=== PATIENT | male | born 1990 | race African-American/Black ===

== ENCOUNTER 2016-11-01 14:32 | Inpatient (IN) | payer BC, OTHER ==
[2016-11-01 15:57] VITALS: BMI 22.8
--- NOTE | 2016-11-01 18:29 | HP ---
COWS - Scale Resting Pulse: 0= [place] 80 or Below Sweatin= Chills/Flushing Restless Observation: 1= Difficult to Sit Still Pupil Size: 1= Pupils >than Normal Bone or Joint Aches: 1= Mild Discomfort Runny Nose/ Eye Tearin= Nasal Congestion GI Upset > 30mins: 3= Vomiting/Diarrhea Tremor Observation: 2= Slight Tremor Visible Yawning Observation: 0= None Anxiety or Irritability: 2=Irritable/Anxious Goose Flesh Skin: 3=Piloerection COWS Score: 15 Admission ROS S - [facility] Chief Complaint: WITHDRAWAL SX Allergies/Adverse Reactions: Allergies Allergy/AdvReac Type Severity Reaction Status Date / Time No Known Allergies Allergy Verified 11/01/16 17:08 History of Present Illness: 25 YEARS OLD MALE WITH LONG HISTORY OF OPIATE NICOTINE DEPENDENCE HAS SCOLIOSIS DENIES MENTAL ILLNESS IS ADMITTED TO DETOX Exam Limitations: No Limitations - Ebola screening Have you traveled outside of the country in the last 21 days: No (N) Have you had contact with anyone from an Ebola affected area: No Have you been sick,other than usual withdrawal symptoms: No Do you have a fever: No - Review of Systems Constitutional: Chills, Loss of Appetite, Changes in sleep, Unintentional Wgt. Loss, Unexplained wgt Loss EENT: reports: No Symptoms Reported Respiratory: reports: No Symptoms reported Cardiac: reports: No Symptoms Reported GI: reports: Diarrhea, Nausea, Poor Appetite, Poor Fluid Intake, Vomiting, Abdominal cramping : reports: No Symptoms Reported Musculoskeletal: reports: Back Pain, Joint Pain, Muscle Pain, Neck Pain Integumentary: reports: No Symptoms Reported Neuro: reports: Tremors Endocrine: reports: No Symptoms Reported Hematology: reports: No Symptoms Reported Psychiatric: reports: Judgement Intact, Mood/Affect Appropiate, Orientated x3 Other Systems: Reviewed and Negative Patient History - Patient Medical History Hx Anemia: No Hx Asthma: No Hx Chronic Obstructive Pulmonary Disease (COPD): No Hx Cancer: No Hx Cardiac Disorders: No Hx Congestive Heart Failure: No Hx Hypertension: No Hx Hypercholesterolemia: No Hx Pacemaker: No HX Cerebrovascular Accident: No Hx Seizures: No Hx Dementia: No Hx Diabetes: No Hx Gastrointestinal Disorders: No Hx Liver Disease: No Hx Genitourinary Disorders: No Hx Sexually Transmitted Disorders: No Hx Renal Disease (ESRD): No Hx Thyroid Disease: No Hx Human Immunodeficiency Virus (HIV): No Hx Hepatitis C: No Hx Depression: No Hx Suicide Attempt: No Hx Bipolar Disorder: No Hx Schizophrenia: No - Patient Surgical History Past Surgical History: No - PPD History Previous Implant?: Yes Documented Results: Negative w/o proof Implanted On Prior [facility] Admission?: No PPD to be Administered?: Yes - Smoking Cessation Smoking history: Current every day smoker Have you smoked in the past 12 months: Yes Aproximately how many cigarettes per day: 7 Cigars Per Day: 0 Hx Chewing Tobacco Use: No Initiated information on smoking cessation: Yes 'Breaking Loose' booklet given: 11/01/16 - Substance & Tx. History Hx Alcohol Use: No Hx Substance Use: Yes Substance Use Type: Marijuana, Opiates Hx Substance Use Treatment: Yes - Substances Abused Heroin Route: Inhalation Frequency: Daily Amount used: 10 bags Age of first use: 25 Date of Last Use: 10/31/16 Marijuana/Hashish Route: Smoking Frequency: 1-2 times per week Amount used: 1 bag Age of first use: 18 Date of Last Use: 10/25/16 Family Disease History - Family Disease History Family Disease History: Other: Father (NO CONTACT) Admission Physical Exam [facility] - Vital Signs Vital Signs: Vital Signs - 24 hr 11/01/16 15:55 Temperature 97.0 F L Pulse Rate 62 Respiratory 20 Rate Blood Pressure 126/79 - Physical General Appearance: Yes: Appropriately Dressed, Mild Distress, Thin, Tremorous, Irritable, Sweating, Anxious HEENTM: Yes: Hearing grossly Normal, Normal ENT Inspection, Normocephalic, Normal Voice Respiratory: Yes: Chest Non-Tender, Lungs Clear, Normal Breath Sounds, No Respiratory Distress, No Accessory Muscle Use Neck: Yes: Supple, Trachea in good position Breast: Yes: Breasts Symetrical Cardiology: Yes: Regular Rhythm, Regular Rate, S1, S2 Abdominal: Yes: Non Tender, Soft, Increased Bowel Sounds Genitourinary: Yes: Within Normal Limits Back: Yes: Normal Inspection Musculoskeletal: Yes: full range of Motion, Gait Steady, Back pain, Muscle Pain Extremities: Yes: Normal Inspection, Normal Range of Motion, Non-Tender, Tremors Neurological: Yes: Fully Oriented, Alert, Motor Strength 5/5, Normal Mood/Affect , Normal Response Integumentary: Yes: Warm Lymphatic: Yes: Within Normal Limits - Diagnostic (1) Opioid dependence with withdrawal Current Visit: Yes Status: Acute (2) Cannabis dependence, uncomplicated Current Visit: Yes Status: Chronic (3) Nicotine dependence Current Visit: Yes Status: Acute Qualifiers: Nicotine product type: cigarettes Substance use status: in withdrawal Qualified Code(s): F17.213 - Nicotine dependence, cigarettes, with withdrawal (4) Weight loss Current Visit: Yes Status: Acute (5) Scoliosis Current Visit: Yes Status: Chronic Qualifiers: Scoliosis type: idiopathic Idiopathic scoliosis type: adolescent Spinal region: unspecified Qualified Code(s): M41.129 - Adolescent idiopathic scoliosis, site unspecified Cleared for Admission [facility] - Detox or Rehab [facility] Level of Care: Medically Managed Detox Regimen/Protocol: Methadone S Breath Alcohol Content Breath Alcohol Content: 0 Urine Drug Screen - Results Drug Screen Negative: No Urine Drug Screen Results: THC-Marijuana, OPI-Opiates, MTD-Methadone, OXY- Oxycodone
[2016-11-01] MEDS ORDERED: P-EPHED 60MG/TRIPROLIDI 2.5MG TABLET PO PRN (18:32)
[2016-11-01] MEDS ORDERED: NICOTINE POLACRILEX 2 MG GUM BC PRN (18:32)
[2016-11-01] MEDS ORDERED: MAGNESIUM HYDROX 2400MG/30ML ORAL SUSPENSION 30 ML CUP PO PRN (18:32)
[2016-11-01] MEDS ORDERED: IBUPROFEN 400 MG TABLET (FP) PO PRN (18:32)
[2016-11-01] MEDS ORDERED: guaiFENesin/D-METHORPHAN HB 10 ML UNIT-DOSE CUPS PO PRN (18:32)
[2016-11-01] MEDS ORDERED: LOPERAMIDE HCL 2 MG CAPSULE PO PRN (18:32)
[2016-11-01] MEDS ORDERED: MAG HYDROX/AL HYDROX/SIMETH 30 ML UNIT-DOSE CUP PO PRN (18:32)
[2016-11-01] MEDS ORDERED: MAGNESIUM CITRATE 300 ML BOTTLE PO PRN (18:32)
[2016-11-01] MEDS ORDERED: MENTHOL/PHENOL 1 EACH UD MM PRN (18:32)
[2016-11-01] MEDS ORDERED: ACETAMINOPHEN 325 MG TABLET (FP) PO PRN (18:32)
[2016-11-01] MEDS ORDERED: METHADONE HCL 10 MG TABLET (FOR DETOX USE ONLY) PO ONE ×2 (19:00→23:00)
[2016-11-01] MEDS: diazePAM 5 MG TABLET PO PRN (19:43)
[2016-11-01] MEDS: THIAMINE HCL 100 MG TABLET (FP) PO SCH (22:05)
[2016-11-01] MEDS: diphenhydrAMINE HCL 50 MG CAPSULE PO PRN (22:06)
[2016-11-02 03:57] LABS: URINE APPEARANCE CLEAR; URINE BILIRUBIN NEGATIVE (NEGATIVE); URINE BLOOD NEGATIVE (NEGATIVE); URINE COLOR YELLOW; URINE GLUCOSE (UA) NEGATIVE (NEGATIVE); URINE KETONE NEGATIVE (NEGATIVE); URINE LEUK ESTERASE NEGATIVE (NEGATIVE); URINE NITRITE NEGATIVE (NEGATIVE); URINE PROTEIN NEGATIVE (NEGATIVE); URINE UROBILINOGEN NEGATIVE E.U./dl (0.2-1.0)
[2016-11-02 09:56] LABS: MCH 30.3 pg (25.7-33.7); MCHC 33.3 g/dl (32.0-35.9); MEAN CELL VOLUME 91.1 fl (80-96); MEAN PLT VOLUME 10.3 fl (7.5-11.1); PLATELET COUNT 200 K/MM3 (134-434); RDW 13.1 % (11.9-15.9); WHITE BLOOD COUNT 5.8 K/mm3 (4.0-10.0)
[2016-11-02] MEDS ORDERED: METHADONE HCL 10 MG TABLET (FOR DETOX USE ONLY) PO ONE (10:00)
[2016-11-02 10:04] LABS: ALK PHOS 107 U/L (45-117); ANION GAP 8 (8-16); BILIRUBIN,TOTAL 0.3 mg/dL (0.2-1.0); CALCIUM 9.2 mg/dL (8.5-10.1); CO2 31 mmol/L (21-32); CREATININE 0.7 mg/dL (0.7-1.3); GLUCOSE,RANDOM 97 mg/dL (74-106); SGOT/AST 29 U/L (15-37); SGPT/ALT 73 U/L (12-78); TOT PROT 7.1 g/dl (6.4-8.2)
[2016-11-02] MEDS: NICOTINE 14 MG/24 HOURS TOPICAL PATCH TD SCH (10:14)
[2016-11-02] MEDS: diazePAM 5 MG TABLET PO PRN ×3 (10:15→21:35)
[2016-11-02] MEDS: PRENATAL VITAMINS W/ FOLIC ACID TABLET (FP) PO SCH (10:15)
--- NOTE | 2016-11-02 10:40 | PN ---
S COWS - Scale Resting Pulse: 0= [place] 80 or Below Sweatin=Flushed/Facial Moisture Restless Observation: 3= Extraneous Movement Pupil Size: 1= Pupils >than Normal Bone or Joint Aches: 2= Severe Diffuse Aches Runny Nose/ Eye Tearin= Runny Nose/Eyes GI Upset > 30mins: 3= Vomiting/Diarrhea Tremor Observation of Outstretched Hands: 2= Slight Tremor Visible Yawning Observation: 1= 1-2x During Session Anxiety or Irritability: 2=Irritable/Anxious Goose Flesh Skin: 0=Smooth Skin COWS Score: 18 S Progress Note (SOAP) Subjective: ALERT,IRRITABLE,ANXIOUS,INTERRUPTED SLEEP,TREMOR,PAIN IN THE BODY AND BACK Objective: 11/02/16 10:38 Vital Signs Temperature 97.3 F L 11/02/16 09:56 Pulse Rate 58 L 11/02/16 09:56 Respiratory Rate 18 11/02/16 09:56 Blood Pressure 133/72 11/02/16 09:56 O2 Sat by Pulse Oximetry (%) EKG SINUS BRADYCARDIA 58 NO CHEST PAIN,NO SOB,NO DIZZINESS Laboratory Last Values Sodium 139 mmol/L (136-145) 11/02/16 06:00 Potassium 3.7 mmol/L (3.5-5.1) 11/02/16 06:00 Chloride 100 mmol/L (98-107) 11/02/16 06:00 Carbon Dioxide 31 mmol/L (21-32) 11/02/16 06:00 Anion Gap 8 (8-16) 11/02/16 06:00 BUN 15 mg/dL (7-18) 11/02/16 06:00 Creatinine 0.7 mg/dL (0.7-1.3) 11/02/16 06:00 Creat Clearance w eGFR > 60 (>60) 11/02/16 06:00 Random Glucose 97 mg/dL (74-106) 11/02/16 06:00 Calcium 9.2 mg/dL (8.5-10.1) 11/02/16 06:00 Total Bilirubin 0.3 mg/dL (0.2-1.0) 11/02/16 06:00 AST 29 U/L (15-37) 11/02/16 06:00 ALT 73 U/L (12-78) 11/02/16 06:00 Alkaline Phosphatase 107 U/L (45-117) 11/02/16 06:00 Total Protein 7.1 g/dl (6.4-8.2) 11/02/16 06:00 Albumin 4.0 g/dl (3.4-5.0) 11/02/16 06:00 Urine Color Yellow 11/02/16 01:00 Urine Appearance Clear 11/02/16 01:00 Urine pH 6.0 (5.0-8.0) 11/02/16 01:00 Ur Specific [place] 1.026 (1.001-1.035) 11/02/16 01:00 Urine Protein Negative (NEGATIVE) 11/02/16 01:00 Urine Glucose (UA) Negative (NEGATIVE) 11/02/16 01:00 Urine Ketones Negative (NEGATIVE) 11/02/16 01:00 Urine Blood Negative (NEGATIVE) 11/02/16 01:00 Urine Nitrite Negative (NEGATIVE) 11/02/16 01:00 Urine Bilirubin Negative (NEGATIVE) 11/02/16 01:00 Urine Urobilinogen Negative E.U./dl (0.2-1.0) 11/02/16 01:00 Ur Leukocyte Esterase Negative (NEGATIVE) 11/02/16 01:00 LABS PENDING Assessment: 11/02/16 10:40 WITHDRAWAL SYMPTOM Plan: CONTINUE DETOX
[2016-11-02 12:42] LABS: HIV 1 & 2 AB NEGATIVE; HIV 1 AGp24 NEGATIVE
--- NOTE | 2016-11-02 13:43 | EKG ---
Test Reason : Blood Pressure : / mmHG Vent. Rate : 058 BPM Atrial Rate : 058 BPM P-R Int : 138 ms QRS Dur : 092 ms QT Int : 418 ms P-R-T Axes : 060 059 020 degrees QTc Int : 410 ms SINUS BRADYCARDIA OTHERWISE NORMAL ECG NO PREVIOUS ECGS AVAILABLE Confirmed by SHERON GARCIA MD ([id number]) on 11/02/2016 1:42:48 PM Referred By: Confirmed By:SHERON GARCIA MD
[2016-11-02] MEDS: THIAMINE HCL 100 MG TABLET (FP) PO SCH (21:35)
[2016-11-02] MEDS: diphenhydrAMINE HCL 50 MG CAPSULE PO PRN (21:36)
[2016-11-03] MEDS ORDERED: METHADONE HCL 5 MG TABLET (FOR DETOX USE ONLY) PO ONE (10:00)
[2016-11-03] MEDS: PRENATAL VITAMINS W/ FOLIC ACID TABLET (FP) PO SCH (10:42)
[2016-11-03] MEDS: NICOTINE 14 MG/24 HOURS TOPICAL PATCH TD SCH (10:42)
[2016-11-03] MEDS: diazePAM 5 MG TABLET PO PRN ×3 (10:45→20:26)
--- NOTE | 2016-11-03 11:23 | PN ---
BHS COWS - Scale Resting Pulse: 0= [place] 80 or Below Sweatin=Flushed/Facial Moisture Restless Observation: 1= Difficult to Sit Still Pupil Size: 0= Normal to Room Light Bone or Joint Aches: 1= Mild Discomfort Runny Nose/ Eye Tearin= Nasal Congestion GI Upset > 30mins: 0= None Tremor Observation of Outstretched Hands: 2= Slight Tremor Visible Yawning Observation: 2= >3x During Session Anxiety or Irritability: 2=Irritable/Anxious Goose Flesh Skin: 0=Smooth Skin COWS Score: 11 BHS Progress Note (SOAP) Subjective: agitation anxiety sweats interrupted sleep irritable Objective: 11/03/16 11:22 Vital Signs Temperature 98.2 F 11/03/16 10:00 Pulse Rate 80 11/03/16 10:00 Respiratory Rate 16 11/03/16 10:00 Blood Pressure 128/63 11/03/16 10:00 O2 Sat by Pulse Oximetry (%) Laboratory Tests 11/01/16 11/02/16 11/02/16 06:00 01:00 06:00 WBC 5.8 RBC 4.44 Hgb 13.5 Hct 40.5 MCV 91.1 MCHC 33.3 RDW 13.1 Plt Count 200 MPV 10.3 Sodium Potassium Chloride Carbon Dioxide Anion Gap BUN Creatinine Creat Clearance w eGFR Random Glucose Calcium Total Bilirubin AST ALT Alkaline Phosphatase Total Protein Albumin Urine Color Yellow Urine Appearance Clear Urine pH 6.0 Ur Specific [place] 1.026 Urine Protein Negative Urine Glucose (UA) Negative Urine Ketones Negative Urine Blood Negative Urine Nitrite Negative Urine Bilirubin Negative Urine Urobilinogen Negative Ur Leukocyte Esterase Negative RPR Titer HIV 1&2 Antibody Screen Negative HIV P24 Antigen Negative 11/02/16 11/02/16 06:00 06:00 WBC RBC Hgb Hct MCV MCHC RDW Plt Count MPV Sodium 139 Potassium 3.7 Chloride 100 Carbon Dioxide 31 Anion Gap 8 BUN 15 Creatinine 0.7 Creat Clearance w eGFR > 60 Random Glucose 97 Calcium 9.2 Total Bilirubin 0.3 AST 29 ALT 73 Alkaline Phosphatase 107 Total Protein 7.1 Albumin 4.0 Urine Color Urine Appearance Urine pH Ur Specific [place] Urine Protein Urine Glucose (UA) Urine Ketones Urine Blood Urine Nitrite Urine Bilirubin Urine Urobilinogen Ur Leukocyte Esterase RPR Titer Nonreactive HIV 1&2 Antibody Screen HIV P24 Antigen awake/alert ambulating no acute distress Assessment: 11/03/16 11:23 withdrawal sx Plan: continue detox increase fluids
[2016-11-03 21:44] VITALS: BP 105/67; PULSE 60; TEMP 96.4
--- NOTE | 2016-11-03 22:09 | PN ---
[facility] Progress Note Note: INFORMED CLIENT LEFT OFF UNIT FOR 20 MIN UNSUPERVISED ADMINISTRATIVELY DC CLIENT STABLE Vital Signs 11/03/16 11/03/16 11/03/16 16:00 17:25 21:44 Temperature 98.1 F 97.0 F L 96.4 F L Pulse Rate 67 101 H 60 Respiratory 18 20 20 Rate Blood Pressure 136/76 120/58 105/67
[2016-11-04] MEDS ORDERED: METHADONE HCL 5 MG TABLET (FOR DETOX USE ONLY) PO ONE (10:00)
[2016-11-05] MEDS ORDERED: METHADONE HCL 10 MG TABLET (FOR DETOX USE ONLY) PO ONE (10:00)
[2016-11-06] MEDS ORDERED: METHADONE HCL 5 MG TABLET (FOR DETOX USE ONLY) PO ONE (06:00)
== END 2016-11-03 23:04 | disposition home or self-care (01) | DRG 897 ==
LOC: YASAS 14:32 → Y6N 17:36
PROVIDERS: ADMIT Internal Medicine Addiction Medicine; ATTEND Internal Medicine Addiction Medicine
PROC: HZ2ZZZZ Detoxification Services for Substance Abuse Treatment (ICD-10-PCS; principal; 2016-11-01)
DX: F12.20 Cannabis dependence, uncomplicated (principal); F17.210 Nicotine dependence, cigarettes, uncomplicated; M41.129 Adolescent idiopathic scoliosis, site unspecified; R00.1 Bradycardia, unspecified; Z87.898 Personal history of other specified conditions
CPT/HCPCS: 36415; 80053; 81003; 85027; 86593; 87389; 93005; 93010

== ENCOUNTER 2017-01-07 00:41 | Inpatient (IN) | payer BC, OTHER ==
--- NOTE | 2017-01-07 00:50 | HP ---
COWS - Scale Resting Pulse: 0= [place] 80 or Below Sweatin= Chills/Flushing Restless Observation: 1= Difficult to Sit Still Pupil Size: 1= Pupils >than Normal Bone or Joint Aches: 2= Severe Diffuse Aches Runny Nose/ Eye Tearin= Runny Nose/Eyes GI Upset > 30mins: 2= Nausea/Diarrhea Tremor Observation: 1= Tremor [place], Not Seen Yawning Observation: 1= 1-2x During Session Anxiety or Irritability: 2=Irritable/Anxious Goose Flesh Skin: 3=Piloerection COWS Score: 16 Admission ROS S - HPI Chief Complaint: WITHDRAWAL SYMPTOMS Allergies/Adverse Reactions: Allergies Allergy/AdvReac Type Severity Reaction Status Date / Time No Known Allergies Allergy Verified 01/07/17 00:59 History of Present Illness: 26 Y.O. MAN WITH AN EXTENSIVE HISTORY OF OPIOID DEPENDENCE IS HERE SEEKING DETOX. Exam Limitations: No Limitations - Ebola screening Have you traveled outside of the country in the last 21 days: No - Review of Systems Constitutional: Chills, Loss of Appetite, Night Sweats, Unintentional Wgt. Loss EENT: reports: Tearing, Nose Congestion Respiratory: reports: No Symptoms reported Cardiac: reports: No Symptoms Reported GI: reports: Diarrhea, Poor Appetite, Abdominal cramping : reports: No Symptoms Reported Musculoskeletal: reports: Back Pain, Neck Pain Integumentary: reports: No Symptoms Reported Neuro: reports: Tremors Endocrine: reports: No Symptoms Reported Hematology: reports: No Symptoms Reported Psychiatric: reports: Mood/Affect Appropiate, Orientated x3, Anxious Other Systems: Reviewed and Negative Patient History - Patient Medical History Hx Anemia: No Hx Asthma: No Hx Chronic Obstructive Pulmonary Disease (COPD): No Hx Cancer: No Hx Cardiac Disorders: No Hx Congestive Heart Failure: No Hx Hypertension: No Hx Hypercholesterolemia: No Hx Pacemaker: No HX Cerebrovascular Accident: No Hx Seizures: No Hx Dementia: No Hx Diabetes: No Hx Gastrointestinal Disorders: No Hx Liver Disease: No Hx Genitourinary Disorders: No Hx Sexually Transmitted Disorders: No Hx Renal Disease (ESRD): No Hx Thyroid Disease: No Hx Human Immunodeficiency Virus (HIV): No Hx Hepatitis C: No Hx Depression: No Hx Suicide Attempt: No Hx Bipolar Disorder: No Hx Schizophrenia: No - Patient Surgical History Past Surgical History: No - PPD History Previous Implant?: Yes Documented Results: Negative w/proof Implanted On Prior [facility] Admission?: Yes Date: 11/03/16 Results: 0 PPD to be Administered?: No - Reproductive History Patient is a Female of Child Bearing Age (11 -55 yrs old): No - Smoking Cessation Smoking history: Current every day smoker Have you smoked in the past 12 months: Yes Aproximately how many cigarettes per day: 5 Cigars Per Day: 0 Hx Chewing Tobacco Use: No Initiated information on smoking cessation: Yes 'Breaking Loose' booklet given: 01/07/17 - Substance & Tx. History Hx Alcohol Use: No Hx Substance Use: Yes Substance Use Type: Heroin Hx Substance Use Treatment: Yes (Detox ) - Substances Abused Heroin Route: Inhalation Frequency: Daily Amount used: 1 bundle Age of first use: 25 Date of Last Use: 01/06/17 Family Disease History - Family Disease History Family Disease History: Other: Father (NO CONTACT) Admission Physical Exam [facility] - Vital Signs Vital Signs: Last Vital Signs Temp Pulse Resp BP Pulse Ox 97.1 F L 57 L 16 130/71 01/07/17 00:52 01/07/17 00:52 01/07/17 00:52 01/07/17 00:52 - Diagnostic (1) Nicotine dependence Current Visit: Yes Status: Chronic Qualifiers: Nicotine product type: cigarettes Substance use status: in withdrawal Qualified Code(s): F17.213 - Nicotine dependence, cigarettes, with withdrawal (2) Opioid dependence with withdrawal Current Visit: Yes Status: Chronic (3) Weight loss Current Visit: Yes Status: Acute (4) Scoliosis Current Visit: Yes Status: Chronic Qualifiers: Scoliosis type: idiopathic Idiopathic scoliosis type: adolescent Spinal region: unspecified Qualified Code(s): M41.129 - Adolescent idiopathic scoliosis, site unspecified Cleared for Admission [facility] - Detox or Rehab S Level of Care: Medically Managed Detox Regimen/Protocol: Methadone BHS Breath Alcohol Content Breath Alcohol Content: 0 Vital Signs - Vital Signs Vital Signs Refused: No Temperature: 97.1 F Temperature Source: Oral Pulse Rate: 57 Respiratory Rate: 16 Blood Pressure: 130/71 BP Location: Left Arm Blood Pressure Position: Sitting - Height Height: 5 ft 8 in - Weight Weight: 140 lb Weight Measurement Method: Standing Scale Body Mass Index (BMI): 21.2 Urine Drug Screen - Test Device Lot Number: [id number] Expiration Date: 09/07/18 - Control Is Test Valid: Yes - Results Drug Screen Negative: No Urine Drug Screen Results: THC-Marijuana, OPI-Opiates, MTD-Methadone
[2017-01-07 00:52] VITALS: BMI 21.2
[2017-01-07] MEDS ORDERED: LOPERAMIDE HCL 2 MG CAPSULE PO PRN (01:06)
[2017-01-07] MEDS ORDERED: guaiFENesin/D-METHORPHAN HB 10 ML UNIT-DOSE CUPS PO PRN (01:06)
[2017-01-07] MEDS ORDERED: hydrOXYzine PAMOATE 50 MG CAPSULE (FP) PO PRN (01:06)
[2017-01-07] MEDS ORDERED: MAG HYDROX/AL HYDROX/SIMETH 30 ML UNIT-DOSE CUP PO PRN (01:06)
[2017-01-07] MEDS ORDERED: MAGNESIUM CITRATE 300 ML BOTTLE PO PRN (01:06)
[2017-01-07] MEDS ORDERED: IBUPROFEN 400 MG TABLET (FP) PO PRN (01:06)
[2017-01-07] MEDS ORDERED: MENTHOL/PHENOL 1 EACH UD MM PRN (01:06)
[2017-01-07] MEDS ORDERED: NICOTINE POLACRILEX 2 MG GUM BC PRN (01:06)
[2017-01-07] MEDS ORDERED: P-EPHED 60MG/TRIPROLIDI 2.5MG TABLET PO PRN (01:06)
[2017-01-07] MEDS ORDERED: MAGNESIUM HYDROX 2400MG/30ML ORAL SUSPENSION 30 ML CUP PO PRN (01:06)
[2017-01-07] MEDS ORDERED: METHADONE HCL 10 MG TABLET (FOR DETOX USE ONLY) PO ONE ×3 (01:06→23:00)
[2017-01-07] MEDS ORDERED: ACETAMINOPHEN 325 MG TABLET (FP) PO PRN (01:06)
[2017-01-07] MEDS: diazePAM 5 MG TABLET PO PRN ×5 (01:34→22:24)
--- NOTE | 2017-01-07 09:51 | EKG ---
Test Reason : Blood Pressure : / mmHG Vent. Rate : 056 BPM Atrial Rate : 056 BPM P-R Int : 142 ms QRS Dur : 096 ms QT Int : 414 ms P-R-T Axes : 054 062 028 degrees QTc Int : 399 ms SINUS BRADYCARDIA WITH SINUS ARRHYTHMIA WHEN COMPARED WITH ECG OF 01-NOV-2016 18:34, T WAVE AMPLITUDE HAS INCREASED IN ANTEROLATERAL LEADS Confirmed by SUDEEP MCDONALD MD ([id number]) on 01/07/2017 9:50:43 AM Referred By: Confirmed By:SUDEEP MCDONALD MD
[2017-01-07] MEDS: PRENATAL VITAMINS W/ FOLIC ACID TABLET (FP) PO SCH (10:11)
[2017-01-07] MEDS: NICOTINE 14 MG/24 HOURS TOPICAL PATCH TD SCH (10:12)
[2017-01-07 10:29] LABS: MCHC 34.7 g/dl (32.0-35.9); MEAN PLT VOLUME 9.6 fl (7.5-11.1); RDW 14.2 % (11.9-15.9); WHITE BLOOD COUNT 6.4 K/mm3 (4.0-10.0)
[2017-01-07 10:31] LABS: MCH 31.3 pg (25.7-33.7); MEAN CELL VOLUME 90.4 fl (80-96); PLATELET COUNT 231 K/MM3 (134-434)
[2017-01-07 10:33] LABS: ALBUMIN 3.9 g/dl (3.4-5.0); ANION GAP 8 (8-16); CALCIUM 8.9 mg/dL (8.5-10.1); CO2 29 mmol/L (21-32); GLUCOSE,RANDOM 92 mg/dL (74-106)
[2017-01-07 10:41] LABS: ALK PHOS 102 U/L (45-117); BILIRUBIN,TOTAL 0.2 mg/dL (0.2-1.0); COCKROFT - GAULT 113.67; CREATININE 0.9 mg/dL (0.7-1.3); SGPT/ALT 30 U/L (12-78)
[2017-01-07 10:44] LABS: SGOT/AST 18 U/L (15-37)
--- NOTE | 2017-01-07 12:05 | PN ---
[facility] COWS - Scale Resting Pulse: 0= [place] 80 or Below Sweatin=Flushed/Facial Moisture Restless Observation: 1= Difficult to Sit Still Pupil Size: 0= Normal to Room Light Bone or Joint Aches: 2= Severe Diffuse Aches Runny Nose/ Eye Tearin= Nasal Congestion GI Upset > 30mins: 2= Nausea/Diarrhea Tremor Observation of Outstretched Hands: 2= Slight Tremor Visible Yawning Observation: 1= 1-2x During Session Anxiety or Irritability: 2=Irritable/Anxious Goose Flesh Skin: 3=Piloerection COWS Score: 16 BHS Progress Note (SOAP) Subjective: Diarrhea, Interrupted sleep, Body Aches, Stomach Cramping, Sweating. Objective: PT. A & O X 3, OBSERVED AMBULATING ON UNIT. NO ACUTE DISTRESS. 01/07/17 12:02 Vital Signs Temperature 97.3 F L 01/07/17 10:07 Pulse Rate 67 01/07/17 10:07 Respiratory Rate 18 01/07/17 10:07 Blood Pressure 129/63 01/07/17 10:07 O2 Sat by Pulse Oximetry (%) Laboratory Tests 01/07/17 01/07/17 07:50 07:50 WBC 6.4 RBC 4.46 Hgb 14.0 Hct 40.3 MCV 90.4 MCHC 34.7 RDW 14.2 Plt Count 231 MPV 9.6 Sodium 143 Potassium 3.9 Chloride 106 Carbon Dioxide 29 Anion Gap 8 BUN 15 Creatinine 0.9 D Creat Clearance w eGFR > 60 Random Glucose 92 Calcium 8.9 Total Bilirubin 0.2 D AST 18 D ALT 30 D Alkaline Phosphatase 102 Total Protein 7.0 Albumin 3.9 LABS NOTED. 01/07/17 12:03 01/07/17 12:05 Assessment: 01/07/17 12:03 WITHDRAWAL SYMPTOMS. Plan: CONTINUE DETOX. PRN IMMODIUM FOR DIARRHEA.
--- NOTE | 2017-01-07 12:36 | CONSULT ---
[facility] Psychiatric Consult - Data Date of interview: 01/07/17 Admission source: [facility] Identifying data: This is 26 yo single male,unemployed,undomiciled admitted to [address] [place] [address] for Opioid dependence. Substance Abuse History: Patient reports heroin use since 25 years old,1 bundle daily,marijuana since young age daily user. Medical History: Significant for Scoliosis. Psychiatric History: Patient is poor historian due to overly sedation.He reports history of Bipolar disorder.No psychiatric hospitalizations,no suicidal attempts reported.Patient is not on any psychotropic medications at present,but reports taking Seroquel on and off.Seroquel was not ordered at this time due to his drowsiness,sedation.Consider mood stabilizers if needed. Physical/Sexual Abuse/Trauma History: denies Mental Status Exam - Mental Status Exam Cognitive Function: Fair Patient Appearance: Unkempt Mood: Apathetic, Withdrawn Affect: Mood Congruent Patient Behavior: Sedated Speech Pattern: Delayed Voice Loudness: Normal Thought Process: Goal Oriented Thought Disorder: Not Present Hallucinations: Denies Suicidal Ideation: Denies Homicidal Ideation: Denies Insight/Judgement: Impaired Sleep: Fair Appetite: Fair Muscle strength/Tone: Normal Gait/Station: Normal Psychiatric Findings - Problem List ([place] 1, 2,3) (1) Nicotine dependence Current Visit: Yes Status: Chronic Qualifiers: Nicotine product type: cigarettes Substance use status: in withdrawal Qualified Code(s): F17.213 - Nicotine dependence, cigarettes, with withdrawal (2) Opioid dependence with withdrawal Current Visit: Yes Status: Chronic (3) Scoliosis Current Visit: Yes Status: Chronic Qualifiers: Scoliosis type: idiopathic Idiopathic scoliosis type: adolescent Spinal region: unspecified Qualified Code(s): M41.129 - Adolescent idiopathic scoliosis, site unspecified (4) Cannabis dependence, uncomplicated Current Visit: Yes Status: Chronic (5) Bipolar II disorder Current Visit: Yes Status: Chronic - Initial Treatment Plan Initial Treatment Plan: Will monitor porgress.Consider mood stabilizers if needed.
[2017-01-07 13:21] LABS: HIV 1 & 2 AB NEGATIVE; HIV 1 AGp24 NEGATIVE
[2017-01-07] MEDS ORDERED: THIAMINE HCL 100 MG TABLET (FP) PO SCH (22:00)
[2017-01-07] MEDS: diphenhydrAMINE HCL 50 MG CAPSULE PO PRN (22:24)
[2017-01-08] MEDS: diphenhydrAMINE HCL 50 MG CAPSULE PO PRN (01:01)
[2017-01-08] MEDS: diazePAM 5 MG TABLET PO PRN ×3 (05:32→18:15)
[2017-01-08] MEDS ORDERED: METHADONE HCL 10 MG TABLET (FOR DETOX USE ONLY) PO ONE (10:00)
[2017-01-08] MEDS: PRENATAL VITAMINS W/ FOLIC ACID TABLET (FP) PO SCH (10:09)
[2017-01-08] MEDS: NICOTINE 14 MG/24 HOURS TOPICAL PATCH TD SCH (10:09)
[2017-01-08 10:30] LABS: URINE APPEARANCE CLEAR; URINE BILIRUBIN NEGATIVE (NEGATIVE); URINE BLOOD NEGATIVE (NEGATIVE); URINE COLOR LTYELLOW; URINE GLUCOSE (UA) NEGATIVE (NEGATIVE); URINE KETONE NEGATIVE (NEGATIVE); URINE LEUK ESTERASE NEGATIVE (NEGATIVE); URINE NITRITE NEGATIVE (NEGATIVE); URINE PROTEIN NEGATIVE (NEGATIVE); URINE UROBILINOGEN NEGATIVE E.U./dl (0.2-1.0)
--- NOTE | 2017-01-08 14:38 | PN ---
S COWS - Scale Resting Pulse: 0= [place] 80 or Below Sweatin=Flushed/Facial Moisture Restless Observation: 1= Difficult to Sit Still Pupil Size: 0= Normal to Room Light Bone or Joint Aches: 2= Severe Diffuse Aches Runny Nose/ Eye Tearin= Nasal Congestion GI Upset > 30mins: 2= Nausea/Diarrhea Tremor Observation of Outstretched Hands: 2= Slight Tremor Visible Yawning Observation: 1= 1-2x During Session Anxiety or Irritability: 2=Irritable/Anxious Goose Flesh Skin: 3=Piloerection COWS Score: 16 S Progress Note (SOAP) Subjective: Stomach Cramping, Body aches, H/A, Diarrhea, Interrupted Sleep, Tremors, Sweating. Objective: PT. A & O X 3. NO ACUTE DISTRESS. 01/08/17 14:37 Vital Signs Temperature 98.2 F 01/08/17 13:00 Pulse Rate 58 L 01/08/17 13:00 Respiratory Rate 18 01/08/17 13:00 Blood Pressure 113/59 01/08/17 13:00 O2 Sat by Pulse Oximetry (%) Laboratory Tests 01/07/17 01/07/17 01/07/17 07:50 07:50 07:50 WBC 6.4 RBC 4.46 Hgb 14.0 Hct 40.3 MCV 90.4 MCHC 34.7 RDW 14.2 Plt Count 231 MPV 9.6 Sodium 143 Potassium 3.9 Chloride 106 Carbon Dioxide 29 Anion Gap 8 BUN 15 Creatinine 0.9 D Creat Clearance w eGFR > 60 Random Glucose 92 Calcium 8.9 Total Bilirubin 0.2 D AST 18 D ALT 30 D Alkaline Phosphatase 102 Total Protein 7.0 Albumin 3.9 Urine Color Urine Appearance Urine pH Ur Specific [place] Urine Protein Urine Glucose (UA) Urine Ketones Urine Blood Urine Nitrite Urine Bilirubin Urine Urobilinogen Ur Leukocyte Esterase Hepatitis C Antibody <0.1 HIV 1&2 Antibody Screen HIV P24 Antigen 01/07/17 01/08/17 07:50 07:00 WBC RBC Hgb Hct MCV MCHC RDW Plt Count MPV Sodium Potassium Chloride Carbon Dioxide Anion Gap BUN Creatinine Creat Clearance w eGFR Random Glucose Calcium Total Bilirubin AST ALT Alkaline Phosphatase Total Protein Albumin Urine Color Ltyellow Urine Appearance Clear Urine pH 6.0 Ur Specific [place] 1.025 Urine Protein Negative Urine Glucose (UA) Negative Urine Ketones Negative Urine Blood Negative Urine Nitrite Negative Urine Bilirubin Negative Urine Urobilinogen Negative Ur Leukocyte Esterase Negative Hepatitis C Antibody HIV 1&2 Antibody Screen Negative HIV P24 Antigen Negative LABS NOTED. Assessment: 01/08/17 14:38 WITHDRAWAL SYMPTOMS. Plan: CONTINUE DETOX.
--- NOTE | 2017-01-08 22:31 | PN ---
S Progress Note Note: CLIENT ADMINISTRATIVELY DC FOR PHYSICAL AGRESSION TOWARDS ANOTHER PT. CLIENT IS A/O X3 NAD. VSS Vital Signs Temperature 99.0 F 01/08/17 17:27 Pulse Rate 72 01/08/17 17:27 Respiratory Rate 18 01/08/17 17:27 Blood Pressure 117/69 01/08/17 17:27 O2 Sat by Pulse Oximetry (%)
[2017-01-08 23:04] VITALS: BP 116/64; PULSE 65; TEMP 97.6
[2017-01-09] MEDS ORDERED: METHADONE HCL 5 MG TABLET (FOR DETOX USE ONLY) PO ONE (10:00)
--- NOTE | 2017-01-09 14:02 | DS ---
[facility] Detox Discharge Summary Admission Date: 01/07/17 Discharge Date: 01/08/17 - History Present History: Cannabis Dependence, Opioid Dependence Pertinent Past History: Mood disorder - Physical Exam Results Vital Signs: Vital Signs Temperature 97.6 F 01/08/17 23:03 Pulse Rate 65 01/08/17 23:03 Respiratory Rate 18 01/08/17 23:03 Blood Pressure 116/64 01/08/17 23:03 O2 Sat by Pulse Oximetry (%) Pertinent Admission Physical Exam Findings: Withdrawal sx. Laboratory Last Values WBC 6.4 K/mm3 (4.0-10.0) 01/07/17 07:50 RBC 4.46 M/mm3 (4.00-5.60) 01/07/17 07:50 Hgb 14.0 GM/dL (11.7-16.9) 01/07/17 07:50 Hct 40.3 % (35.4-49) 01/07/17 07:50 MCV 90.4 fl (80-96) 01/07/17 07:50 MCHC 34.7 g/dl (32.0-35.9) 01/07/17 07:50 RDW 14.2 % (11.9-15.9) 01/07/17 07:50 Plt Count 231 K/MM3 (134-434) 01/07/17 07:50 MPV 9.6 fl (7.5-11.1) 01/07/17 07:50 Sodium 143 mmol/L (136-145) 01/07/17 07:50 Potassium 3.9 mmol/L (3.5-5.1) 01/07/17 07:50 Chloride 106 mmol/L (98-107) 01/07/17 07:50 Carbon Dioxide 29 mmol/L (21-32) 01/07/17 07:50 Anion Gap 8 (8-16) 01/07/17 07:50 BUN 15 mg/dL (7-18) 01/07/17 07:50 Creatinine 0.9 mg/dL (0.7-1.3) D 01/07/17 07:50 Creat Clearance w eGFR > 60 (>60) 01/07/17 07:50 Random Glucose 92 mg/dL (74-106) 01/07/17 07:50 Calcium 8.9 mg/dL (8.5-10.1) 01/07/17 07:50 Total Bilirubin 0.2 mg/dL (0.2-1.0) D 01/07/17 07:50 AST 18 U/L (15-37) D 01/07/17 07:50 ALT 30 U/L (12-78) D 01/07/17 07:50 Alkaline Phosphatase 102 U/L (45-117) 01/07/17 07:50 Total Protein 7.0 g/dl (6.4-8.2) 01/07/17 07:50 Albumin 3.9 g/dl (3.4-5.0) 01/07/17 07:50 Urine Color Ltyellow 01/08/17 07:00 Urine Appearance Clear 01/08/17 07:00 Urine pH 6.0 (5.0-8.0) 01/08/17 07:00 Ur Specific [place] 1.025 (1.005-1.025) 01/08/17 07:00 Urine Protein Negative (NEGATIVE) 01/08/17 07:00 Urine Glucose (UA) Negative (NEGATIVE) 01/08/17 07:00 Urine Ketones Negative (NEGATIVE) 01/08/17 07:00 Urine Blood Negative (NEGATIVE) 01/08/17 07:00 Urine Nitrite Negative (NEGATIVE) 01/08/17 07:00 Urine Bilirubin Negative (NEGATIVE) 01/08/17 07:00 Urine Urobilinogen Negative E.U./dl (0.2-1.0) 01/08/17 07:00 Ur Leukocyte Esterase Negative (NEGATIVE) 01/08/17 07:00 RPR Titer Nonreactive (NONREACTIVE) 01/08/17 09:20 Hepatitis C Antibody <0.1 s/co ratio (0.0-0.9) 01/07/17 07:50 HIV 1&2 Antibody Screen Negative 01/07/17 07:50 HIV P24 Antigen Negative 01/07/17 07:50 labs noted - Treatment Patient has Accepted a Rehab Referral to: IOP - Medication Discharge Medications: Ambulatory Orders NK [No Known Home Medication] 01/09/17 - Diagnosis (1) Bipolar II disorder Status: Chronic (2) Cannabis dependence, uncomplicated Status: Acute (3) Nicotine dependence Status: Acute Qualifiers: Nicotine product type: cigarettes Substance use status: in withdrawal Qualified Code(s): F17.213 - Nicotine dependence, cigarettes, with withdrawal (4) Opioid dependence with withdrawal Status: Acute - AMA Did Patient Leave Against Medical Advice: No
[2017-01-10] MEDS ORDERED: METHADONE HCL 5 MG TABLET (FOR DETOX USE ONLY) PO ONE (10:00)
[2017-01-11] MEDS ORDERED: METHADONE HCL 10 MG TABLET (FOR DETOX USE ONLY) PO ONE (10:00)
[2017-01-12] MEDS ORDERED: METHADONE HCL 5 MG TABLET (FOR DETOX USE ONLY) PO ONE (06:00)
== END 2017-01-08 22:15 | disposition home or self-care (01) | DRG 897 ==
LOC: YASAS 00:41 → Y3N 00:45
PROVIDERS: ADMIT Internal Medicine; ATTEND Internal Medicine
PROC: HZ2ZZZZ Detoxification Services for Substance Abuse Treatment (ICD-10-PCS; principal; 2017-01-08)
DX: F11.23 Opioid dependence with withdrawal (principal); F31.81 Bipolar II disorder; F12.20 Cannabis dependence, uncomplicated; F17.213 Nicotine dependence, cigarettes, with withdrawal; M41.129 Adolescent idiopathic scoliosis, site unspecified
CPT/HCPCS: 36415; 80053; 81003; 85027; 86593; 86803; 87389; 93005; 93010